=== PATIENT | male | born 1945 | race Caucasian/White ===

== ENCOUNTER 2017-11-09 20:23 | Emergency (ER) | payer SELFPAY ==
[~2017-11-09] VITALS: Ht 167.6 cm; Wt 79.4 kg
[~2017-11-09 20:23] MED LIST: AMLODIPINE BESY10 M1 PO; GOOD SENSE ASPI81 M3 PO; LISINOPRIL40 MG PO; LOSARTAN POTASS1 TA6 PO; PREDNISONE5 MG PO
[2017-11-09 20:32] VITALS: Ht 167.6 cm; Wt 79.4 kg
[2017-11-09 21:13] LABS: BASOPHIL % 0.4 % (0-2); PLATELET COUNT 215 x10^3mcL (130-400); RED CELL DISTRIBUTION WIDTH 14.2 % (11.5-14.5)
[2017-11-09 21:22] LABS: CARBON DIOXIDE 27.7 mmol/L (21-32); CHLORIDE SERUM 100 mmol/L (98-107); CREATININE SERUM 0.8 mg/dL (0.7-1.3); GFR1 > 60 mL/min; GLUCOSE SERUM 115 mg/dL (74-106); SODIUM SERUM 137 mmol/L (136-145)
[2017-11-09 21:26] LABS: ALBUMIN 3.7 g/dL (3.4-5.0); ALKALINE PHOSPHATASE 70 U/L (46-116); ALT/SGPT 29 U/L (16-63); AST/SGOT 21 U/L (15-37); BILIRUBIN TOTAL 0.5 mg/dL (0.20-1.00); TOTAL PROTEIN, SERUM 7.8 g/dL (6.4-8.2)
[2017-11-09 21:35] LABS: FREE T4 0.94 ng/dL (0.76-1.46); FREE THYROXINE INDEX 1.9 ug/dL (1.4-4.5); T4(THYROXINE) 5.5 ug/dL (4.7-13.3)
[2017-11-09 21:46] LABS: T3 TOTAL 1.11 ng/mL
[2017-11-09 23:20] VITALS: BP 140/78
== END 2017-11-09 23:20 | disposition home or self-care (01) ==
LOC: ED 20:23
PROVIDERS: Emergency Medicine
DX: I10 Essential (primary) hypertension (principal)
CPT/HCPCS: 36415; 83880; 84439; Q0092